=== PATIENT | female | born 1955 | race African-American/Black ===

== ENCOUNTER 2016-08-13 23:34 | Emergency (ER) | payer MEDICAID, BC ==
[2016-08-13 23:58] LABS: APPEARANCE CLEAR (CLEAR); BILIRUBIN NEGATIVE (NEGATIVE); COLOR YELLOW (YELLOW); GLUCOSE NEGATIVE (NEGATIVE); KETONE NEGATIVE (NEGATIVE); LEUKOCYTE ESTERASE NEGATIVE (NEGATIVE); NITRITE NEGATIVE (NEGATIVE); PROTEIN NEGATIVE (NEGATIVE); UROBILINOGEN NORMAL (NORMAL)
== END 2016-08-14 01:00 | disposition home or self-care (01) ==
LOC: D.ER 23:34
PROVIDERS: Emergency Medicine
DX: M54.5 Low back pain (principal); S39.012A Strain of muscle, fascia and tendon of lower back, initial encounter; X58.XXXA Exposure to other specified factors, initial encounter; Y93.89 Activity, other specified; Y92.89 Other specified places as the place of occurrence of the external cause; I10 Essential (primary) hypertension; E11.9 Type 2 diabetes mellitus without complications; F32.9 Major depressive disorder, single episode, unspecified; F17.200 Nicotine dependence, unspecified, uncomplicated

== ENCOUNTER 2017-09-04 15:52 | Emergency (ER) | payer MEDICAID ==
[2017-09-04 17:22] LABS: BASOPHILS 0.3 % (0-2); EOSINOPHILS 2.7 % (0-7); HEMOGLOBIN 13.4 g/dL (12-16); IMMATURE GRANULOCYTES 0.4 % (0-5); LYMPHOCYTES 32.1 % (15-50); MCH 27.8 pg (26.0-34.0); MCHC 33.5 g/dL (31.0-37.0); MEAN PLATELET VOLUME 10.5 fL (7.4-10.4); MONOCYTES 6.2 % (2-11); NEUTROPHILS 58.3 % (40-80); PLATELET COUNT 280 10x3/uL (130-400); RBC 4.82 10x6/uL (4.00-5.40); RDW 14.4 % (11.5-14.5); WBC 11.3 10x3/uL (4.8-10.8)
[2017-09-04 17:31] LABS: INR 0.84 (0.85-1.17); PROTIME 11.1 SECONDS (11.6-15.0)
[2017-09-04 17:32] LABS: KETONE - SERUM NEGATIVE (NEGATIVE)
[2017-09-04 17:41] LABS: ALBUMIN 3.7 g/dL (3.4-5.0); ALKALINE PHOSPHATASE 113 U/L (46-116); ALT (SGPT) 17 U/L (10-68); AMYLASE - SERUM 72 U/L (25-115); BILIRUBIN - TOTAL 0.26 mg/dL (0.2-1.3); CALCIUM 10.2 mg/dL (8.5-10.1); CARBON DIOXIDE 26.7 mmol/L (21.0-32.0); CHLORIDE - SERUM 97 mmol/L (98-107); CREATINE KINASE 25 UL (21-215); CREATININE - SERUM 1.2 mg/dL (0.6-1.3); LIPASE 448 U/L (73-393); MAGNESIUM - SERUM 1.7 mg/dL (1.8-2.4); POTASSIUM - SERUM 4.1 mmol/L (3.5-5.1); PROTEIN - SERUM 7.3 g/dL (6.4-8.2); SODIUM 131 mmol/L (136-145); UREA NITROGEN 20 mg/dL (7-18); eGFR NON AFRICAN AMERICAN 48 mL/min (90-120)
[2017-09-04 17:43] LABS: CALC OSMOLALITY 287 mosm/kg (275-300); TROPONIN-I < 0.017 ng/mL (0.000-0.060)
[2017-09-04 17:44] LABS: GLUCOSE 497 mg/dL (74-106)
[2017-09-04 18:12] LABS: APPEARANCE CLOUDY (CLEAR); BILIRUBIN NEGATIVE (NEGATIVE); COLOR YELLOW (YELLOW); GLUCOSE 1000 mg/dL (NEGATIVE); KETONE NEGATIVE (NEGATIVE); NITRITE NEGATIVE (NEGATIVE); PROTEIN NEGATIVE (NEGATIVE); SPECIFIC GRAVITY 1.015 (1.005-1.020); UROBILINOGEN NORMAL (NORMAL)
[2017-09-04 18:13] LABS: BACTERIA MODERATE /hpf (NONE SEEN); EPITHELIAL CELLS 0-5 /hpf (0-5); RED CELLS - URINE OCC /hpf (0-5); WHITE CELLS - URINE 0-5 /hpf (0-5)
[2017-09-04 18:14] LABS: YEAST <1+ /hpf (NONE SEEN)
== END 2017-09-04 20:06 | disposition home or self-care (01) ==
LOC: D.ER 15:52
PROVIDERS: Nurse Practitioner Family
DX: E11.65 Type 2 diabetes mellitus with hyperglycemia (principal); B37.9 Candidiasis, unspecified; I10 Essential (primary) hypertension

== ENCOUNTER 2019-10-03 13:18 | Inpatient (IN) | payer OTHER ==
[2019-10-03] VITALS (47 sets, daily range): BP systolic 58–154; BP diastolic 26–92
[~2019-10-03] VITALS: Ht 170.2 cm; Wt 105.5 kg
--- NOTE | 2019-10-03 13:35 | NUR ---
CRITICAL LABS VIA TELEPHONE PER MARTINEZ, K+ 6.7, CO2 7.0, LATIC ACID 25.7, AMMONIA 158, DR. CAMPBELL NOTIFIED.
--- NOTE | 2019-10-03 13:38 | NUR ---
BEARHUGGER PLACED ON PATIENT.
[2019-10-03] MEDS ORDERED: LISINOPRIL-HCT1 EAC7 PO (13:39)
[2019-10-03] MEDS ORDERED: METOPROLOL TART25 MG PO (13:40)
[2019-10-03] MEDS ORDERED: SEROQUEL200 MG PO (13:40)
[2019-10-03] MEDS ORDERED: NORVASC10 MG PO (13:40)
[2019-10-03] MEDS ORDERED: KLONOPIN0.5 MG PO (13:40)
[2019-10-03] MEDS ORDERED: AMBIEN5 MG PO (13:40)
[2019-10-03] MEDS ORDERED: GLUCOPHAGE1000 MG (13:41)
[2019-10-03] MEDS ORDERED: PAXIL20 MG PO (13:41)
[2019-10-03] MEDS ORDERED: PAXIL40 MG PO (13:41)
[2019-10-03] MEDS ORDERED: HYDROCODON-ACE1 EAC7 PO (13:41)
[2019-10-03] MEDS ORDERED: BAYER CHEWABLE81 MG PO (13:41)
[2019-10-03] MEDS ORDERED: OMEPRAZOLE20 M1 PO (13:41)
[2019-10-03] MEDS ORDERED: MECLIZINE HCL25 MG PO (13:41)
[2019-10-03 13:44] LABS: BASOPHILS 0.2 % (0-2); EOSINOPHILS 1.1 % (0-7); HEMATOCRIT 44.7 % (36.0-48.0); HEMOGLOBIN 13.6 g/dL (12-16); IMMATURE GRANULOCYTES 5.8 % (0-5); LYMPHOCYTES 35.2 % (15-50); MCH 29.4 pg (26.0-34.0); MCHC 30.4 g/dL (31.0-37.0); MCV 96.8 fL (80.0-100.0); MEAN PLATELET VOLUME 10.1 fL (7.4-10.4); NEUTROPHILS 52.7 % (40-80); RBC 4.62 10x6/uL (4.00-5.40); RDW 15.3 % (11.5-14.5); WBC 17.4 10x3/uL (4.8-10.8)
[2019-10-03 13:45] LABS: PLATELET COUNT 371 10x3/uL (130-400)
[2019-10-03 13:55] LABS: APTT 30.6 SECONDS (22.8-39.4); INR 1.59 (0.85-1.17); PROTIME 18.7 SECONDS (11.6-15.0)
[2019-10-03 13:56] LABS: BILIRUBIN NEGATIVE (NEGATIVE); GLUCOSE NEGATIVE (NEGATIVE); KETONE NEGATIVE (NEGATIVE); NITRITE NEGATIVE (NEGATIVE); SPECIFIC GRAVITY 1.005 (1.005-1.020); UROBILINOGEN NORMAL (NORMAL)
[2019-10-03 13:56] LABS: D-DIMER-QUANTITATIVE 1.99 ug/mLFEU (0.20-0.54)
[2019-10-03 14:04] LABS: BACTERIA MANY /hpf (NEGATIVE); EPITHELIAL CELLS 0-5 /hpf (0-5); RED CELLS - URINE 0-5 /hpf (0-5); UDS - AMPHET NEGATIVE QUAL (NEGATIVE); UDS - BARB NEGATIVE QUAL (NEGATIVE); UDS - BENZO NEGATIVE QUAL (NEGATIVE); UDS - COCAINE NEGATIVE QUAL (NEGATIVE); UDS - OPIATE NEGATIVE QUAL (NEGATIVE); UDS - PCP NEGATIVE QUAL (NEGATIVE); UDS - THC NEGATIVE QUAL (NEGATIVE)
[2019-10-03 14:05] LABS: AMORPHOUS SEDIMENT >1+ /lpf (NONE SEEN)
[2019-10-03 14:13] LABS: ALBUMIN 2.8 g/dL (3.4-5.0); ALKALINE PHOSPHATASE 57 U/L (30-120); ALT (SGPT) 21 U/L (10-68); BILIRUBIN - TOTAL 0.15 mg/dL (0.2-1.3); CALCIUM 8.8 mg/dL (8.5-10.1); CHLORIDE - SERUM 96 mmol/L (98-107); CKMB 20.2 U/L (0.0-3.6); CREATININE - SERUM 2.6 mg/dL (0.6-1.3); LIPASE 419 U/L (73-393); MAGNESIUM - SERUM 2.4 mg/dL (1.8-2.4); PRO BNP 160 pg/mL (0-125); PROTEIN - SERUM 6.3 g/dL (6.4-8.2); SODIUM 135 mmol/L (136-145); THYROID STIMULATING HORMONE 1.41 uIU/mL (0.36-3.74); TROPONIN-I < 0.017 ng/mL (0.000-0.060); UREA NITROGEN 12 mg/dL (7-18); eGFR NON AFRICAN AMERICAN 20 mL/min (90-120)
[2019-10-03 14:18] LABS: CALC OSMOLALITY 271 mosm/kg (275-300); CREATINE KINASE 2938 UL (21-215); GLUCOSE 139 mg/dL (74-106)
[2019-10-03 14:21] LABS: POTASSIUM - SERUM 6.7 mmol/L (3.5-5.1)
--- NOTE | 2019-10-03 14:30 | NUR ---
PATIENT RETURNED FROM CT AT THIS TIME. RN PRESENT WITH PATIENT IN CT. PT TRANSPORTED TO CT WITH RN, CARDIAC, BP, AND PULSE OX MONITORING AND RADIOLOGY.
--- NOTE | 2019-10-03 14:45 | NUR ---
UNABLE TO PERFORM SI SCREENING DUE TO PATIENT CONDITION.
--- NOTE | 2019-10-03 15:01 | NUR ---
CALCIUM GLUCONATE STOPPED AT THIS TIME
--- NOTE | 2019-10-03 17:33 | NUR ---
1700 TOTAL OF 14 AMP BICARB GIVEN IV PUSH
--- NOTE | 2019-10-03 17:34 | NUR ---
1734 ANESTHESIA INTUBATED AT BEDSIDE WITHOUT COMPLICATIONS ETT 7.5
--- NOTE | 2019-10-03 17:35 | NUR ---
1735 ETT 7.5 223 AT LIP
--- NOTE | 2019-10-03 17:37 | NUR ---
1656 ASSESSMENT COMPLETE, ADMISSION COMPLETE
--- NOTE | 2019-10-03 17:39 | NUR ---
DR IVAN GALLEGOS CNA DID THE INTUBATION CXR ORDERED
--- NOTE | 2019-10-03 17:59 | NUR ---
LEVOPHED HAS BEEN TITRATED DURING INTUBATION WITH MD STAFF AT BEDSIDE AND NOW IS INFUSING AT 20 MCG/MIN
--- NOTE | 2019-10-03 18:43 | NUR ---
1845 SODIUM BICARB 3 AMPS IV GIVEN
--- NOTE | 2019-10-03 19:09 | NUR ---
ORDER TO DIALYZE PATIENT NOTED HEIDI FROM [facility] ARRIVED TO INITIATE DIALYSIS
--- NOTE | 2019-10-03 19:11 | NUR ---
VENT SETTINGS CHANGED TO AC 25 TV 500 FIO2 60% PEEP 5 STT 7.6 23 AT LIP
[2019-10-03 19:15] LABS: CALCIUM 8.4 mg/dL (8.5-10.1); CREATININE - SERUM 2.6 mg/dL (0.6-1.3)
[2019-10-03 19:21] LABS: ANION GAP 53.3 mmol/L (8-16); CARBON DIOXIDE 13.3 mmol/L (21.0-32.0); POTASSIUM - SERUM 5.6 mmol/L (3.5-5.1)
--- NOTE | 2019-10-03 19:30 | NUR ---
[address] REYES OF LACTIC ACID 44.7
--- NOTE | 2019-10-03 19:47 | NUR ---
1909 INSERTED 16fr CRITICOR JACOBS WITH CLOUDY YELLOW URINE ON RETURN
--- NOTE | 2019-10-03 20:09 | NUR ---
PRIMARY EDUCATION PROFESSOR AT BEDSIDE AND STARTED DIALYSIS ON PT
--- NOTE | 2019-10-03 20:30 | NUR ---
CALLED , UPDATED ON PT SBP 67 ON MAX LEVOPHED AND VASO GTT WITH VAHE GTT@ 50MCG/MIN, ORDERS RECEIVED TO GIVE 1 LITER NS BOLUS, AND GIVE x2 AMPS SODIUM BICARB, NO FURTHER AT HIS TIME WILL CONTINUE TO MONITORT
--- NOTE | 2019-10-03 21:00 | NUR ---
CALLED ICU, UPDATE GIVEN, ORDERS RECEIVED; IF SBP DROPPS BELOW 90 GIVE 3 AMPS BICARB IV
--- NOTE | 2019-10-03 21:48 | NUR ---
POISON CONTROL MARIA A CALLED, UPDATE GIVEN ON PT, NO FURTHER AT THIS TIME
--- NOTE | 2019-10-03 21:56 | NUR ---
PT OPENING EYES AND FOLLOWING COMMANDS, TITRATING PRESSURE MEDS DOWN AT THIS TIME, WILL CONTINUE TO MONITOR
--- NOTE | 2019-10-03 22:30 | NUR ---
CALLED ICU, UPDATE GIVEN, ORDERS RECEIVED TO CHECK BMP 1HR S/P DIALYSIS, AND START DIPRAVAN AT LOW DOSE FOR SEDATION, VSS, WILL CONTINUE TO MONITOR
--- NOTE | 2019-10-03 22:49 | NUR ---
DAUGHTER BEVERLY MITALI CALLED ICU, TWO FORMS ID VERIFIED, UPDATE GIVEN, NO FURTHER AT THIS TIME
--- NOTE | 2019-10-03 22:50 | NUR ---
DAUGHTER BEVERLY JASMINE PHONE NUMBER [phone]
[2019-10-04] VITALS (69 sets, daily range): BP systolic 93–158; BP diastolic 34–91; Ht 170.2 cm; Wt 105.5 kg
[2019-10-04 01:25] LABS: CREATININE - SERUM 2.1 mg/dL (0.6-1.3)
[2019-10-04 01:33] LABS: POTASSIUM - SERUM 4.1 mmol/L (3.5-5.1)
[2019-10-04 01:34] LABS: ANION GAP 46.6 mmol/L (8-16); CALCIUM 6.9 mg/dL (8.5-10.1); CARBON DIOXIDE 7.5 mmol/L (21.0-32.0)
--- NOTE | 2019-10-04 01:47 | NUR ---
NOTIFIED OF CRITICAL LABS, UPDATE GIVEN WITH LABS, V/S, GTT INFUSING AND OTHER, ORDERS RECEIVED; GIVE 2 GRAMS CALCIUM GLUCONATE PIV, CONTINUE CURRENT THERAPY, GET MORNING LABS @0330 WITH LACTIC ACID AND ABG'S, NO FURTHER AT THIS TIME WILL CONTINUE TO MONITOR
[2019-10-04 04:24] LABS: HEMATOCRIT 38.1 % (36.0-48.0); HEMOGLOBIN 11.3 g/dL (12-16); MCH 28.5 pg (26.0-34.0); MCHC 29.7 g/dL (31.0-37.0); MCV 96.2 fL (80.0-100.0); MEAN PLATELET VOLUME 10.2 fL (7.4-10.4); PLATELET COUNT 294 10x3/uL (130-400); RBC 3.96 10x6/uL (4.00-5.40); RDW 15.6 % (11.5-14.5); WBC 27.7 10x3/uL (4.8-10.8)
[2019-10-04 04:49] LABS: ANION GAP 54.3 mmol/L (8-16); BILIRUBIN - TOTAL 0.31 mg/dL (0.2-1.3); CALCIUM 7.6 mg/dL (8.5-10.1); CREATININE - SERUM 2.5 mg/dL (0.6-1.3); MAGNESIUM - SERUM 1.7 mg/dL (1.8-2.4); PHOSPHOROUS 7.5 mg/dL (2.5-4.9); POTASSIUM - SERUM 4.4 mmol/L (3.5-5.1); PROTEIN - SERUM 5.4 g/dL (6.4-8.2)
[2019-10-04 04:50] LABS: CARBON DIOXIDE 7.1 mmol/L (21.0-32.0)
[2019-10-04 04:52] LABS: LYMPHOCYTES 18 % (15-50); MONOCYTES 2 % (2-11); NEUTROPHILS 71 % (40-80)
[2019-10-04 04:53] LABS: PLATELET ESTIMATE NORMAL
--- NOTE | 2019-10-04 05:00 | NUR ---
AT BEDSIDE, UPDATE GIVEN, ORDERS RECEIVED TO TURN SEDATION OFF, VSS, WILL CONTINUE TO MONITOR
--- NOTE | 2019-10-04 05:57 | NUR ---
ANSWERING SERVICE CALLED AND INFORMED OF CONSULT
--- NOTE | 2019-10-04 07:15 | NUR ---
REPORT RECEIVED. ASSESSMENT COMPLET EPER FLOW SHEET. VSS. DR ROSALES AT BEDSIDE GIVEN UPDATE.
--- NOTE | 2019-10-04 09:00 | NUR ---
DR ROYAL AT BEDSIDE. GIVEN UPDATE. NEW ORDERS RECIEVED.
[2019-10-04 09:16] LABS: UDS - AMPHET NEGATIVE QUAL (NEGATIVE); UDS - BARB NEGATIVE QUAL (NEGATIVE); UDS - BENZO NEGATIVE QUAL (NEGATIVE); UDS - COCAINE NEGATIVE QUAL (NEGATIVE); UDS - OPIATE NEGATIVE QUAL (NEGATIVE); UDS - PCP NEGATIVE QUAL (NEGATIVE); UDS - THC NEGATIVE QUAL (NEGATIVE)
--- NOTE | 2019-10-04 10:46 | NUR ---
REASSESSMENT COMPLETE PER FLOW SHEET. VSS. DIALYSIS AT BEDSIDE NO NEW CHANGES
[2019-10-04 14:33] LABS: ALBUMIN 2.9 g/dL (3.4-5.0); BILIRUBIN - TOTAL 0.45 mg/dL (0.2-1.3); CALCIUM 7.2 mg/dL (8.5-10.1); PROTEIN - SERUM 5.5 g/dL (6.4-8.2)
[2019-10-04 14:41] LABS: ANION GAP 23.7 mmol/L (8-16); CARBON DIOXIDE 22.8 mmol/L (21.0-32.0); CREATININE - SERUM 1.4 mg/dL (0.6-1.3); PHOSPHOROUS 2.2 mg/dL (2.5-4.9); POTASSIUM - SERUM 3.5 mmol/L (3.5-5.1)
[2019-10-04 14:51] LABS: INR 1.14 (0.85-1.17); PROTIME 14.6 SECONDS (11.6-15.0)
--- NOTE | 2019-10-04 15:00 | NUR ---
REASSESSMENT COMPLTE PER FLOW SHEET. VSS. PT RESTING CMOFRTABLY WILL CONTINUE TO MONITOR
[2019-10-04 20:07] LABS: ALBUMIN 2.8 g/dL (3.4-5.0); ANION GAP 18.4 mmol/L (8-16); BILIRUBIN - TOTAL 0.37 mg/dL (0.2-1.3); CREATININE - SERUM 1.6 mg/dL (0.6-1.3); PROTEIN - SERUM 5.2 g/dL (6.4-8.2)
[2019-10-04 20:09] LABS: CARBON DIOXIDE 30.6 mmol/L (21.0-32.0)
--- NOTE | 2019-10-04 20:43 | MORECARE ---
CASE MANAGEMENT DISCHARGE SUMMARY PATIENT: SEUN MACKAY UNIT: [id number] ADM DATE: 10/03/19 AGE: 64 : 59 SEX: F ROOM/BED: D.[facility] AUTHOR: HEATH MUÑZO PHYSICIAN: REFERRING PHYSICIAN: NANDO SANCHEZ MD DATE OF SERVICE: 10/04/19 Discharge Plan Patient Name: SEUN MACKAY Facility: [facility]:[place] : 1955 Planned Disposition: Anticipated Discharge Date: Discharge Date: Expected LOS: Initial Reviewer: [email or web address] Initial Review Date: 10/03/2019 Generated: 10/04/19 9:43 pm Comments DCP- Discharge Planning Updated by ARI: Tanja Silvestre on 10/04/19 7:[address] CM ATTEMPTED TO GET DICHARGE PLANNING ASSESSMENT COMPLETED. PATIENT ON VENT AND CM UNABLE TO CONTACT FAMILY DCPIA - Discharge Planning Initial Assessment Updated by [id number]: Tanja Silvestre on 10/04/19 8:39 pm * Is the patient Alert and Oriented? No * How many steps to enter\exit or inside your home? Patient Name: SEUN MACKAY Page [phone] at 2042 All edits/amendments must be made on the electronic document DICTATION DATE: 10/04/192042 PHOTOCOMPOSING MACHINE OPERATOR: MORALES 10/04/192042 RPT#: [id number] DC DATE: STATUS: ADM IN [place] [address] [place] [address] END OF REPORT
--- NOTE | 2019-10-04 21:29 | NUR ---
DAUGHTER BVEERLY JASMINE CALLED ICU, OLLIE VERIFIED, UPDATE GIVEN, NO FURTHER QUESTIONS OR CONCERNS NOTED
--- NOTE | 2019-10-04 23:11 | NUR ---
CALLED ICU, UPDATE GIVEN INCLUDING LABS,V/S, AND OTHER, ORDERS RECEIVED TO DECREASE D5+HCO3 GTT TO 75ML/HR, REPEAT MORNING LABS WITH MAG & PHOS, ALSO CHECK LACTIC ON LABS, GET ABG'S WITH LYTES, INFORMED ABOUT PT'S SBP ELEVATED 140-160'S ON ART LINE AND NIBP, ORDERS RECEIVED FOR HYDRALAZINE 10MG PIV FOR SBP ABOVE 170, ORDERS REPEATED AND VERIFIED BY , WILL CONTINUE TO MONITOR
[2019-10-05] VITALS (23 sets, daily range): BP systolic 17–167; BP diastolic 43–107
[2019-10-05 02:09] LABS: ANION GAP 11.4 mmol/L (8-16); CALCIUM 7.1 mg/dL (8.5-10.1); CARBON DIOXIDE 33.9 mmol/L (21.0-32.0); CREATININE - SERUM 1.5 mg/dL (0.6-1.3)
[2019-10-05 02:10] LABS: MAGNESIUM - SERUM 2.1 mg/dL (1.8-2.4); POTASSIUM - SERUM 3.3 mmol/L (3.5-5.1)
[2019-10-05 04:33] LABS: BASOPHILS 0.1 % (0-2); EOSINOPHILS 0 % (0-7); HEMATOCRIT 39.7 % (36.0-48.0); IMMATURE GRANULOCYTES 0.3 % (0-5); MCH 28.8 pg (26.0-34.0); MCHC 32.7 g/dL (31.0-37.0); MEAN PLATELET VOLUME 9.7 fL (7.4-10.4); NEUTROPHILS 76.6 % (40-80); PLATELET COUNT 249 10x3/uL (130-400); RBC 4.52 10x6/uL (4.00-5.40); RDW 14.7 % (11.5-14.5)
[2019-10-05 04:44] LABS: MCV 87.8 fL (80.0-100.0); WBC 12.7 10x3/uL (4.8-10.8)
[2019-10-05 04:52] LABS: ANION GAP 13.4 mmol/L (8-16); BILIRUBIN - TOTAL 0.38 mg/dL (0.2-1.3); CALCIUM 7.3 mg/dL (8.5-10.1); CARBON DIOXIDE 34.6 mmol/L (21.0-32.0); CREATININE - SERUM 1.5 mg/dL (0.6-1.3); MAGNESIUM - SERUM 2.2 mg/dL (1.8-2.4); PHOSPHOROUS 1.8 mg/dL (2.5-4.9); PROTEIN - SERUM 5.7 g/dL (6.4-8.2)
--- NOTE | 2019-10-05 07:44 | NUR ---
DAUGHTER CALLED, UPDATE GIVEN, NO FURTHER NEEDS AT THIS TIME
--- NOTE | 2019-10-05 08:00 | NUR ---
0800 MOVED PT TO ROOM 2306 WITHOUT COMPLICATIONS
[2019-10-05 08:09] LABS: HEPATITIS C ANTIBODY 0.1 S/CO RAT (0.0-0.9)
--- NOTE | 2019-10-05 08:44 | NUR ---
0700 BEDSIDE REPORT RECEIVED FROM SIN CALIBRATION CHECKER COMPLETE PT FOLLOWS COMMANDS PULLED UP IN BED AND TURNED TO RIGHT SIDE WITH PILLOW SUPPORT
--- NOTE | 2019-10-05 08:45 | NUR ---
0835 PLACED ON CPAP MODE ON VENT INSTRUCTD PT TO TAKE DEEP BREATHS
--- NOTE | 2019-10-05 10:40 | NUR ---
1030 REMAINS ON CPAP WEANING TRIAL PROPOFOL REMAINS OFF
--- NOTE | 2019-10-05 14:37 | NUR ---
1440 RIGHT IJ TRIALYSIS DRESSING CHANGED WITH ASEPTIC TECHNIQUE
--- NOTE | 2019-10-05 14:38 | NUR ---
6388 DR ROYLA CALLED ANS ASKED FOR ABGS CALLED MAY PLASENCIA SAID SHE WILL DO ABGS SOON SHE GETS BACK FROM CT WITH ANOTHER PATIENT ORDER PLACED IN COMPUTER
--- NOTE | 2019-10-05 15:02 | MORECARE ---
CASE MANAGEMENT DISCHARGE SUMMARY PATIENT: SEUN MACKAY UNIT: [id number] ADM DATE: 10/03/19 AGE: 64 : 59 SEX: F ROOM/BED: D.2306 AUTHOR: HEATH MUÑOZ PHYSICIAN: REFERRING PHYSICIAN: NANDO SANCHEZ MD DATE OF SERVICE: 10/05/19 Discharge Plan Patient Name: SEUN MACKAY Facility: [facility]:[place] : 1955 Planned Disposition: Anticipated Discharge Date: Discharge Date: Expected LOS: Initial Reviewer: [email or web address] Initial Review Date: 10/03/2019 Generated: 10/05/19 4:01 pm Comments DCP- Discharge Planning Updated by ARI: Tanja Silvestre on 10/05/19 1:[address] CM attempted to call family listed on contacts and still unable to get in touch with them. Patient is still on vent. CM will continue to follow and assist as needed with discharge planning / needs. DCP- Discharge Planning Updated by ARI: Tanja Silvestre on 10/04/19 7:[address] CM ATTEMPTED TO GET DICHARGE PLANNING ASSESSMENT COMPLETED. PATIENT ON VENT AND CM UNABLE TO CONTACT FAMILY DCPIA - Discharge Planning Initial Assessment Updated by ARI: Tanja Silvestre on 10/04/19 8:39 pm * Is the patient Alert and Oriented? No * How many steps to enter\exit or inside your home? Last DP export: 10/04/19 7:43 pm Patient Name: SEUN MACKAY Page [phone] at 1502 All edits/amendments must be made on the electronic document DICTATION DATE: 10/05/19 1501 WORKERS COMPENSATION CLAIMS ASSISTANT: MORALES 10/05/19 1501 RPT#: [id number] DC DATE: STATUS: ADM IN [facility] [address] [place] [address] END OF REPORT
--- NOTE | 2019-10-05 15:27 | NUR ---
RECEIVED VERBAL ORDER FROM ROYAL TO EXTUBATE PT TO 4LPM LUNG SOUNDS CLEAR SPO2 100% NO SOB NOTED
--- NOTE | 2019-10-05 15:42 | NUR ---
1515 EXTUBATED BY AMY RT WITHOUT COMPLICATIONS PLACED ON 4L O2/NC. DISCONTINUED RONNIE WRIST RESTRAINTS COUGHING UP THICK SPUTUM
--- NOTE | 2019-10-05 15:48 | NUR ---
1530 CONSULTED WITH JEANMARIE PHARMACIST REGARDING VANCO TROUGH 5.7 ASKING IF THEY WANTED TO ADJUST VANCOMYCIN DOSE. WAS INSTRUCTED TO HANG THE VANCO 1 GRAM THAT WAS ORDERED
--- NOTE | 2019-10-05 15:50 | NUR ---
1550 PHYC STAFF PRESENT PERFORMING PSYC EVAL
--- NOTE | 2019-10-05 16:13 | NUR ---
DR. ALTAMIRANO NOTIFIED AND REVIEWED PT'S BEHAVIOR AND ASSESMENT RESULTS. PT IS A LOW RISK PER DR. ALTAMIRANO. DR. ALTAMIRANO STATED TO GIVE RESOURCES TO PT AT TIME OF DISCHARGE. NO FURTHER ORDERS AT THIS TIME. RESOURCES REVIEWED WITH PT AND SHE VERBALIZIED UNDERSTANDING.
[2019-10-05 17:45] LABS: CARBON DIOXIDE 32.8 mmol/L (21.0-32.0)
[2019-10-05 18:02] LABS: ANION GAP 10.2 mmol/L (8-16); CREATININE - SERUM 1.1 mg/dL (0.6-1.3)
[2019-10-05 18:05] LABS: CALCIUM 6.9 mg/dL (8.5-10.1)
--- NOTE | 2019-10-05 19:00 | NUR ---
REPORT RECEIVED. PT RESTING IN BED, DISORIENTED TO TIME AND SITUATION. ASSESSMENT COMPLETED, SEE FLOWSHEET. 2L O2 VIA NC, NO ACUTE DISTRESS NOTED. RT IJ TRIALYSIS PORT INFUSING, SEE IV FLOWSHEET. WILL CONTINUE TO MONITOR.
--- NOTE | 2019-10-05 21:00 | NUR ---
PT RESTING COMFORTABLY, NO SIGNS OF ACUTE DISTRESS.
--- NOTE | 2019-10-05 23:00 | NUR ---
REASSESSMENT COMPLETED, PT C/O NAUSEA. WILL CONTINUE TO MONITOR.
[2019-10-06] VITALS (15 sets, daily range): BP systolic 127–183; BP diastolic 82–111
--- NOTE | 2019-10-06 01:00 | NUR ---
PT REPORTS NAUSEA, NO VOMITING OF YET. WILL CONTINUE TO MONITOR.
--- NOTE | 2019-10-06 03:00 | NUR ---
REASSESSMENT COMPLETED, SEE FLOWSHEET. PT RESTING IN BED, NO ACUTE DISTRESS NOTED.
[2019-10-06 04:07] LABS: HEPATITIS BE ANTIGEN Negative (Negative)
--- NOTE | 2019-10-06 05:00 | NUR ---
PT ATTEMPTING TO GET OUT OF BED, ATTEMPTED TO REORIENT. NO ACUTE DISTRESS NOTED, MILD ANXIETY NOTED.
[2019-10-06 05:43] LABS: BASOPHILS 0.1 % (0-2); EOSINOPHILS 0.5 % (0-7); HEMATOCRIT 42.9 % (36.0-48.0); HEMOGLOBIN 14.1 g/dL (12-16); IMMATURE GRANULOCYTES 0.7 % (0-5); LYMPHOCYTES 6.6 % (15-50); MCH 28.5 pg (26.0-34.0); MCHC 32.9 g/dL (31.0-37.0); MCV 86.7 fL (80.0-100.0); MEAN PLATELET VOLUME 10.2 fL (7.4-10.4); MONOCYTES 6.6 % (2-11); NEUTROPHILS 85.5 % (40-80); PLATELET COUNT 214 10x3/uL (130-400); RBC 4.95 10x6/uL (4.00-5.40); RDW 14.3 % (11.5-14.5)
[2019-10-06 05:44] LABS: WBC 19.6 10x3/uL (4.8-10.8)
[2019-10-06 06:10] LABS: ALBUMIN 3.4 g/dL (3.4-5.0); ALKALINE PHOSPHATASE 97 U/L (30-120); BILIRUBIN - TOTAL 0.75 mg/dL (0.2-1.3); CALC OSMOLALITY 277 mosm/kg (275-300); CARBON DIOXIDE 25.6 mmol/L (21.0-32.0); CHLORIDE - SERUM 103 mmol/L (98-107); GLUCOSE 121 mg/dL (74-106); POTASSIUM - SERUM 3.2 mmol/L (3.5-5.1); SODIUM 139 mmol/L (136-145); UREA NITROGEN 10 mg/dL (7-18); eGFR NON AFRICAN AMERICAN 77 mL/min (90-120)
[2019-10-06 06:27] LABS: ALT (SGPT) 83 U/L (10-68); CREATININE - SERUM 0.8 mg/dL (0.6-1.3)
--- NOTE | 2019-10-06 07:15 | NUR ---
REPORT RECEIVED. PT CONFUSED. WANTS TO KNOW WHEN DOCTOR WILL BE HERE AND WILL D/C HER. PT HAS RIGHT IJ WITH TRIALYSIS CATH. SHE HAS A RIGHT RADIAL A-LINE. SHE HAS A JACOBS.
--- NOTE | 2019-10-06 08:47 | NUR ---
RAHAT RAUSCH'Angela AT THIS TIME, PT TOLERATED WELL
--- NOTE | 2019-10-06 10:39 | NUR ---
PT DRINKING PHOSPHORUS WITH WATER. WILL MONITOR.
[2019-10-06 12:08] LABS: HEPATITIS BE ANTIBODY Negative (Negative)
--- NOTE | 2019-10-06 12:37 | NUR ---
PT ASSISTED BACK TO BED FROM CHAIR PER REQUEST.
--- NOTE | 2019-10-06 12:39 | NUR ---
Nutrition Follow-up: Extubated 10/04. Ok for mech soft with thin liquids per TIN STACKER. Diet: Regular, Mech Soft with Thin Liquids Wt: 232.5# (10/03) Last BM: 10/03 per chart Labs noted: K+ 3.2, Glu 121, Ca 8.0, PO4 1.8, Alb 3.4 Meds noted: Lasix, KCl, KDur, Protonix, Neutra-Phos -Change to cardiac carb consistent mech soft diet. -Encourage PO intake and honor food preferences within diet restrictions. -Monitor wt. -RD following.
--- NOTE | 2019-10-06 14:10 | NUR ---
PT TRYING TO GET OUT OF BED AND REMOVE ELECTRODES. REORIENTED. ASSISTED BACK IN BED. WILL MONITOR.
--- NOTE | 2019-10-06 16:57 | NUR ---
DAUGHTER CALLED AND UPDATED.
[2019-10-07 00:30] VITALS: BP 138/86
[2019-10-07 04:00] VITALS: BP 131/78
[2019-10-07 06:26] LABS: BASOPHILS 0.1 % (0-2); EOSINOPHILS 2.7 % (0-7); HEMOGLOBIN 14.5 g/dL (12-16); IMMATURE GRANULOCYTES 0.4 % (0-5); LYMPHOCYTES 9.7 % (15-50); MCH 28.5 pg (26.0-34.0); MCV 86.4 fL (80.0-100.0); MEAN PLATELET VOLUME 10.7 fL (7.4-10.4); MONOCYTES 7.3 % (2-11); NEUTROPHILS 79.8 % (40-80); PLATELET COUNT 232 10x3/uL (130-400); RBC 5.09 10x6/uL (4.00-5.40); RDW 14.3 % (11.5-14.5); WBC 18.2 10x3/uL (4.8-10.8)
[2019-10-07 07:26] LABS: ALKALINE PHOSPHATASE 87 U/L (30-120); BILIRUBIN - TOTAL 0.81 mg/dL (0.2-1.3); CALC OSMOLALITY 279 mosm/kg (275-300); CALCIUM 8.1 mg/dL (8.5-10.1); CARBON DIOXIDE 24.9 mmol/L (21.0-32.0); CHLORIDE - SERUM 103 mmol/L (98-107); CREATININE - SERUM 0.7 mg/dL (0.6-1.3); GLUCOSE 122 mg/dL (74-106); POTASSIUM - SERUM 3.2 mmol/L (3.5-5.1); PROTEIN - SERUM 6.3 g/dL (6.4-8.2); SODIUM 140 mmol/L (136-145); UREA NITROGEN 12 mg/dL (7-18); VANCOMYCIN - TROUGH 12.7 ug/mL (10.0-20.0); eGFR NON AFRICAN AMERICAN 90 mL/min (90-120)
[2019-10-07 07:28] LABS: ALT (SGPT) 61 U/L (10-68)
[2019-10-07 08:18] VITALS: BP 123/64
--- NOTE | 2019-10-07 10:22 | NUR ---
PT ALERT AND ORIENTED WHEN I ENTERED ROOM. MULTIPLE COMPLAINTS ABOUT BEING UNABLE TO SLEEP. AT THIS TIME NO SLEEP MEDS ARE AVALIABLE. WILL TALK TO DRS. WHEN THEY ROUND. NO TOHER COMPLAINTS OR CONCERNS AT THIS TIME. CL INR EACH,S RX2.
[2019-10-07 11:37] VITALS: BP 130/85
--- NOTE | 2019-10-07 12:56 | NUR ---
RESTING PEACEFULLY WHEN I ENTERED ROOM. DID NOT FURTHER DISTURB. CL INR EACH, SRX2
--- NOTE | 2019-10-07 18:52 | NUR ---
I have reviewed this patient and I concur with the Shift Assessment completed by the Licensed Practical Nurse today this shift.
--- NOTE | 2019-10-07 19:15 | NUR ---
RECEIVED REPORT, WILL ASSUME CARE OF PT, TALKING ON PHONE, DENIES ANY NEEDS AT THIS TIME, BED IS LOW, SRX2, CALL LIGHT IN REACH, WILL CONTINUE PLAN OF CARE
[2019-10-07 20:00] VITALS: BP 128/78
[2019-10-08] VITALS: BP 135/77
--- NOTE | 2019-10-08 00:49 | NUR ---
I have reviewed this patient and I concur with the Shift Assessment completed by the Licensed Practical Nurse today this shift.
[2019-10-08 05:07] LABS: BASOPHILS 0.1 % (0-2); EOSINOPHILS 5.7 % (0-7); HEMATOCRIT 43.3 % (36.0-48.0); HEMOGLOBIN 14.3 g/dL (12-16); IMMATURE GRANULOCYTES 0.4 % (0-5); LYMPHOCYTES 20.5 % (15-50); MCH 28.7 pg (26.0-34.0); MCV 86.8 fL (80.0-100.0); MEAN PLATELET VOLUME 10.2 fL (7.4-10.4); MONOCYTES 10.5 % (2-11); NEUTROPHILS 62.8 % (40-80); PLATELET COUNT 209 10x3/uL (130-400); RBC 4.99 10x6/uL (4.00-5.40); RDW 14.2 % (11.5-14.5); WBC 13.7 10x3/uL (4.8-10.8)
[2019-10-08 05:46] LABS: ALBUMIN 2.7 g/dL (3.4-5.0); ALKALINE PHOSPHATASE 70 U/L (30-120); ALT (SGPT) 50 U/L (10-68); BILIRUBIN - TOTAL 0.54 mg/dL (0.2-1.3); CALC OSMOLALITY 286 mosm/kg (275-300); CALCIUM 8.4 mg/dL (8.5-10.1); CARBON DIOXIDE 27.4 mmol/L (21.0-32.0); CHLORIDE - SERUM 105 mmol/L (98-107); CREATININE - SERUM 0.6 mg/dL (0.6-1.3); GLUCOSE 120 mg/dL (74-106); POTASSIUM - SERUM 3.2 mmol/L (3.5-5.1); PROTEIN - SERUM 6.3 g/dL (6.4-8.2); SODIUM 143 mmol/L (136-145); UREA NITROGEN 15 mg/dL (7-18); eGFR NON AFRICAN AMERICAN > 90 mL/min (90-120)
[2019-10-08] MEDS ORDERED: LOPRESSOR25 MG PO (09:04)
[2019-10-08 09:25] VITALS: BP 131/81
--- NOTE | 2019-10-08 10:13 | MORECARE ---
CASE MANAGEMENT DISCHARGE SUMMARY PATIENT: SEUN MACKAY UNIT: [id number] ADM DATE: 10/03/19 AGE: 64 : 59 SEX: F ROOM/BED: D.1383 AUTHOR: HEATH MUÑOZ PHYSICIAN: REFERRING PHYSICIAN: NANDO SANCHEZ MD DATE OF SERVICE: 10/08/19 Discharge Plan Patient Name: SEUN MACKAY Facility: [facility]:[place] : 1955 Planned Disposition: Home Anticipated Discharge Date: 10/08/19 Discharge Date: Expected LOS: 5 Initial Reviewer: ARI Initial Review Date: 10/03/2019 Generated: 10/08/19 11:13 am Comments DCP- Discharge Planning Updated by [id number]: Tanja Silvestre on 10/05/19 1:[address] CM attempted to call family listed on contacts and still unable to get in touch with them. Patient is still on vent. CM will continue to follow and assist as needed with discharge planning / needs. DCP- Discharge Planning Updated by [id number]: Tanja Silvestre on 10/04/19 7:[address] CM ATTEMPTED TO GET DICHARGE PLANNING ASSESSMENT COMPLETED. PATIENT ON VENT AND CM UNABLE TO CONTACT FAMILY DCPIA - Discharge Planning Initial Assessment Updated by [email or web address]: Tanja Silvestre on 10/04/19 8:39 pm * Is the patient Alert and Oriented? No * How many steps to enter\exit or inside your home? Last DP export: 10/05/19 2:02 pm Patient Name: SEUN MACKAY Page [phone] at 1013 All edits/amendments must be made on the electronic document DICTATION DATE: 10/08/19 1013 CAFE MANAGER: MORALES 10/08/19 1013 RPT#: [id number] DC DATE: STATUS: ADM IN [facility] [address] [place] [address] END OF REPORT
--- NOTE | 2019-10-08 10:21 | MORECARE ---
CASE MANAGEMENT DISCHARGE SUMMARY PATIENT: SEUN MACKAY UNIT: [id number] ADM DATE: 10/03/19 AGE: 64 : 59 SEX: F ROOM/BED: D.9034 AUTHOR: TONI,DOC PHYSICIAN: REFERRING PHYSICIAN: NANDO SANCHEZ MD DATE OF SERVICE: 10/08/19 Discharge Plan Patient Name: SEUN MACKAY Facility: [facility]:[place] : 1955 Planned Disposition: Home Anticipated Discharge Date: 10/08/19 Discharge Date: Expected LOS: 5 Initial Reviewer: [email or web address] Initial Review Date: 10/03/2019 Generated: 10/08/19 11:20 am Comments DCP- Discharge Planning Updated by [email or web address]: Karena Bahena on 10/08/19 9:[address] CM received discharge order. CM met with patient to discuss discharge planning/needs. States she lives with her sister and brother (Dayan and Saroj). At discharge, she plans to return and feels this is a safe discharge. States she ambulates with a walker, otherwise she is completely independent with all ADL's and IADL's. States she goes to OP psychiatric treatment on [facility] with Dr[address] Cooper. States her therapist is Kori Romo. States she is going to check her glucose more frequently since she has not been eating in the morning due to lack of appetite. States her daughter will transport her home. She declines need for DME or home health. Her drivers license was returned to her. No needs identified. Home today. DCP- Discharge Planning Updated by [id number]: Tanja Silvestre on 10/05/19 1:[address] CM attempted to call family listed on contacts and still unable to get in touch with them. Patient is still on vent. CM will continue to follow and assist as needed with discharge planning / needs. DCP- Discharge Planning Updated by [email or web address]: Tanja Silvestre on 10/04/19 7:[address] CM ATTEMPTED TO GET DICHARGE PLANNING ASSESSMENT COMPLETED. PATIENT ON VENT AND CM UNABLE TO CONTACT FAMILY DCPIA - Discharge Planning Initial Assessment Updated by [email or web address]: Karena Bahena on 10/08/19 10:13 am * Is the patient Alert and Oriented? Yes * How many steps to enter\exit or inside your home? 0/0 * PCP Dr. Diana Raymundo at [facility] * [facility] [address] * Preadmission Environment Home with Family * ADLs Partial Dependent * Partial ADLs (Assistance needed) Ambulation * Equipment Glucometer Nebulizer Walker * List name and contact numbers for known caregivers / representatives who currently or will assist patient after discharge: Dayami Esparza - sister - [phone] Mary - DTR - [phone] Saroj Mackay - brother * Verbal permission to speak to the caregivers and representatives has been obtained from the patient. Yes * Community resources currently utilized None * Additional services required to return to the preadmission environment? No * Can the patient safely return to the preadmission environment? Yes * Has this patient been hospitalized within the prior 30 days at any hospital? No Coverage Notice Reviewer: [email or web address] Bahena Notice Issued Date-Time: 10/08/2019 9:55 Notice Type: IM Discharge Notice Notice Delivered To: Patient Relationship to Patient: Self Counselor Nurses' Association Name: Delivery Method: - Laine Days: Prior Verbal Notification: Recipient Understood Notice: Recipient Signature: Med Rec Note Co-signed by Attending: Coverage Notice Comment: Reviewer: [id number] Bernadette Bahena Notice Issued Date-Time: 10/08/2019 10:17 Notice Type: Patient Choice Letter Notice Delivered To: Patient Relationship to Patient: Self Counselor Nurses[employer] Name: Delivery Method: HAND - Hand Delivered Laine Days: Prior Verbal Notification: Recipient Understood Notice: Yes Recipient Signature: Yes Med Rec Note Co-signed by Attending: Coverage Notice Comment: Declination of home health Last DP export: 10/08/19 9:13 a Patient Name: SEUN MACKAY Page [phone] at 1021 All edits/amendments must be made on the electronic document DICTATION DATE: 10/08/19 1020 VISUAL EFFECTS ARTIST: MORALES 10/08/19 1020 RPT#: [id number] DC DATE: STATUS: ADM IN [facility] [address] [place] [address] END OF REPORT
--- NOTE | 2019-10-08 12:02 | NUR ---
TRIALYISIS REMOVED BY RN. PT TO LIE FLAT FOR 15 MINUTES
--- NOTE | 2019-10-08 12:23 | NUR ---
PT ESCORTED OUT VIA WHEELCHAIR TO DAUGHTERS POV.
--- NOTE | 2019-10-08 14:34 | MORECARE ---
CASE MANAGEMENT DISCHARGE SUMMARY PATIENT: SEUN MACKAY UNIT: [id number] ADM DATE: 10/03/19 AGE: 64 : 59 SEX: F ROOM/BED: D.9097 AUTHOR: TONI,DOC PHYSICIAN: REFERRING PHYSICIAN: NANDO SANCHEZ MD DATE OF SERVICE: 10/08/19 Discharge Plan Patient Name: SEUN MACKAY Facility: [facility]:[place] : 1955 Planned Disposition: Home Anticipated Discharge Date: 10/08/19 Discharge Date: 10/08/2019 Expected LOS: 5 Initial Reviewer: [email or web address] Initial Review Date: 10/03/2019 Generated: 10/08/19 3:34 pm Comments DCP- Discharge Planning Updated by [email or web address]: Karena Bahena on 10/08/19 9:[address] CM received discharge order. CM met with patient to discuss discharge planning/needs. States she lives with her sister and brother (Dayan and Saroj). At discharge, she plans to return and feels this is a safe discharge. States she ambulates with a walker, otherwise she is completely independent with all ADL's and IADL's. States she goes to OP psychiatric treatment on [facility] with Dr. Cooper. States her therapist is Kori Romo. States she is going to check her glucose more frequently since she has not been eating in the morning due to lack of appetite. States her daughter will transport her home. She declines need for DME or home health. Her drivers license was returned to her. No needs identified. Home today. DCP- Discharge Planning Updated by [email or web address]: Tanja Silvestre on 10/05/19 1:[address] CM attempted to call family listed on contacts and still unable to get in touch with them. Patient is still on vent. CM will continue to follow and assist as needed with discharge planning / needs. DCP- Discharge Planning Updated by [id number]: Tanja Silvestre on 10/04/19 7:[address] CM ATTEMPTED TO GET DICHARGE PLANNING ASSESSMENT COMPLETED. PATIENT ON VENT AND CM UNABLE TO CONTACT FAMILY DCPIA - Discharge Planning Initial Assessment Updated by [email or web address]: Karena Bahena on 4/12/20 10:13 am * Is the patient Alert and Oriented? Yes * How many steps to enter\exit or inside your home? 0/0 * PCP Dr. Diana Raymundo at [facility] * Pharmacy [facility] [address] * Preadmission Environment Home with Family * ADLs Partial Dependent * Partial ADLs (Assistance needed) Ambulation * Equipment Glucometer Nebulizer Walker * List name and contact numbers for known caregivers / representatives who currently or will assist patient after discharge: Dayami Esparza - sister - [phone] Mary - DTR - [phone] Saroj Mackay - brother * Verbal permission to speak to the caregivers and representatives has been obtained from the patient. Yes * Community resources currently utilized None * Additional services required to return to the preadmission environment? No * Can the patient safely return to the preadmission environment? Yes * Has this patient been hospitalized within the prior 30 days at any hospital? No Coverage Notice Reviewer: [id number] Bahena Notice Issued Date-Time: 10/08/2019 9:55 Notice Type: IM Discharge Notice Notice Delivered To: Patient Relationship to Patient: Self Pricing Strategist Name: Delivery Method: - Laine Days: Prior Verbal Notification: Recipient Understood Notice: Recipient Signature: Med Rec Note Co-signed by Attending: Coverage Notice Comment: Reviewer: [id number] Bahena Notice Issued Date-Time: 10/08/2019 10:17 Notice Type: Patient Choice Letter Notice Delivered To: Patient Relationship to Patient: Self Pricing Strategist Name: Delivery Method: HAND - Hand Delivered [place] Days: Prior Verbal Notification: Recipient Understood Notice: Yes Recipient Signature: Yes Med Rec Note Co-signed by Attending: Coverage Notice Comment: Declination of home health Last DP export: 10/08/19 9:21 a Patient Name: SEUN MACKAY Page 16665 at 1434 All edits/amendments must be made on the electronic document DICTATION DATE: 10/08/191433 EVENT DECORATOR AND DESIGNER: MORALES 10/08/191433 RPT#: [id number] DC DATE:10/08/19 STATUS: DIS IN [facility] [address] [place] [address] END OF REPORT
--- NOTE | 2019-10-13 13:30 | OP ---
PATIENT NAME: SEUN MACKAY MEDICAL RECORD: [id number] :[birth year] LOCATION:D. D.7 ADMISSION DATE:10/03/19 SURGEON: DALE MATA MD DATE OF OPERATION: 10/03/2019 PREOPERATIVE DIAGNOSES: 1. Severe metabolic acidosis. 2. Cirrhosis. 3. Acute renal failure. 4. Lactic acidosis. 5. Metformin overdose. 6. Hypothermia. POSTOPERATIVE DIAGNOSES: 1. Severe metabolic acidosis. 2. Cirrhosis. 3. Acute renal failure. 4. Lactic acidosis. 5. Metformin overdose. 6. Hypothermia. PROCEDURE: 1. Right IJ 12.5 cm Trialysis catheter placement. 2. Right femoral 20-gauge arterial line placement. SURGEON: Dale Mata MD REPORT OF PROCEDURE: The patient's right neck was prepped and draped in sterile fashion. Using ultrasound guidance, we were able to infuse 5 cc of 1% lidocaine above the internal jugular vein and then we accessed the vein using ultrasound guidance and placed a wire with ease. Over this wire, a dilator was placed followed by the Trialysis catheter. This catheter aspirated nonpulsatile dark blood and flushed easily in all 3 ports. This was sutured into place with 4-0 nylons and dressed appropriately. We then prepped the patient's right wrist. The patient had a palpable pulse. Using a 20-gauge arterial dart, we were able to access the radial artery and had good pulsatile flow. Initial readings were systolic of approximately 90-95. This was sutured into place with 4-0 nylon and dressed appropriately. COMPLICATIONS: None. CONDITION: Critical. ANESTHESIA: Local. BLOOD LOSS: Minimal. Procedure done in the ICU at the bedside. TRANSINT:[id number] Voice Confirmation ID: [id number] DOCUMENT ID: [id number] OPERATIVE REPORT [id number] MACKAYSEUN CHRISTIAN MD at 1330 CC: [id number] DICTATION DATE: 10/03/19 165 DRUMS TEACHER: 10/03/19 1801 DIS IN 10/08/19 [place] [address]
== END 2019-10-08 12:24 | disposition home or self-care (01) | DRG 917 ==
LOC: D.ER 13:18 → D.ICU 15:06 → D.M2 10-06 19:42
PROVIDERS: Family Medicine; Internal Medicine; ADMIT Internal Medicine Nephrology; ATTEND Internal Medicine Nephrology
PROC: 05HB33Z Insertion of Infusion Device into Right Basilic Vein, Percutaneous Approach (ICD-10-PCS; principal; 2019-10-03)
PROC: B54MZZA Ultrasonography of Right Upper Extremity Veins, Guidance (ICD-10-PCS; 2019-10-03)
PROC: 04HK33Z Insertion of Infusion Device into Right Femoral Artery, Percutaneous Approach (ICD-10-PCS; 2019-10-03)
PROC: 0BH18EZ Insertion of Endotracheal Airway into Trachea, Via Natural or Artificial Opening Endoscopic (ICD-10-PCS; 2019-10-03)
PROC: 5A1945Z Respiratory Ventilation, 24-96 Consecutive Hours (ICD-10-PCS; 2019-10-03)
DX: T38.3X1A Poisoning by insulin and oral hypoglycemic [antidiabetic] drugs, accidental (unintentional), initial encounter (principal); K71.11 Toxic liver disease with hepatic necrosis, with coma; J96.00 Acute respiratory failure, unspecified whether with hypoxia or hypercapnia; G92 Toxic encephalopathy; E87.2 Acidosis; R57.9 Shock, unspecified; N17.9 Acute kidney failure, unspecified; T68.XXXA Hypothermia, initial encounter; I25.10 Atherosclerotic heart disease of native coronary artery without angina pectoris; I10 Essential (primary) hypertension; J43.9 Emphysema, unspecified; E87.5 Hyperkalemia; E66.01 Morbid (severe) obesity due to excess calories; Z68.32 Body mass index [BMI] 32.0-32.9, adult; E11.649 Type 2 diabetes mellitus with hypoglycemia without coma; K74.60 Unspecified cirrhosis of liver